=== PATIENT | female | born 1990 | race African-American/Black ===

== ENCOUNTER 2018-09-04 11:44 | Emergency (ER) | payer MEDICAID, OTHER ==
[~2018-09-04] VITALS: Ht 172.7 cm; Wt 165.0 kg
[~2018-09-04 11:44] MED LIST: IRON; PRENATAL
[2018-09-04] MEDS ORDERED: PREDNISONE 20MG TABLET PO ONE (14:45)
[2018-09-04] MEDS ORDERED: ALBUTEROL (0.5%) 2.5MG/0.5ML NEB HHN ONE (14:45)
[2018-09-04 16:12] VITALS: BP 139/83
== END 2018-09-04 16:00 | disposition home or self-care (01) ==
LOC: ER 11:44
DX: J40 Bronchitis, not specified as acute or chronic (principal); E66.01 Morbid (severe) obesity due to excess calories; Z98.890 Other specified postprocedural states; Z68.43 Body mass index [BMI] 50.0-59.9, adult
CPT/HCPCS: 71045; 81025; 94640; 99283; J7512; J7611

== ENCOUNTER 2018-10-05 07:15 | Emergency (ER) | payer MEDICAID ==
[~2018-10-05] VITALS: Ht 170.2 cm; Wt 177.0 kg
[2018-10-05 09:25] VITALS: BP 135/79
== END 2018-10-05 09:30 | disposition home or self-care (01) ==
LOC: ER 08:08
DX: J06.9 Acute upper respiratory infection, unspecified (principal); H10.9 Unspecified conjunctivitis
CPT/HCPCS: 87070; 87430; 99283